=== PATIENT | female | born 1990 | race Caucasian/White ===

== ENCOUNTER → 2017-05-02 | Outpatient (CLI) | payer OTHER ==
[2017-05-02 10:52] LABS: HEMOGLOBIN 12.4 g/dL (12.2-16.2); LYMPH # 1.3 K/mm3 (0.7-4.5); LYMPH % 17.3 % (10-50.0)
[2017-05-02 14:00] LABS: ABO BLOOD TYPE A; RH BLOOD TYPE POSITIVE
[2017-05-03 08:53] LABS: HBsAg Screen Negative (Negative); HIV Screen 4th Generation wRfx Non Reactive (Non Reactive); Rapid Plasma Reagin, Quant Non Reactive (NonRea<1:1); Rubella Antibodies, IgG 4.99 index (Immune >0.99)
== END ==
LOC: LAB 10:22
PROVIDERS: Nurse Practitioner Obstetrics & Gynecology
DX: Z34.00 Encounter for supervision of normal first pregnancy, unspecified trimester (principal)
CPT/HCPCS: G0432

== ENCOUNTER → 2017-05-09 | Outpatient (CLI) | payer OTHER ==
--- NOTE | 2017-05-09 15:16 | RADIOLOGY REPORT PS360 ---
US TRANSVAGINAL PREG HISTORY: Check for gestational age, dates DATES ORDERING PHYSICIAN: Torsten Day MD PATIENT AGE: 26 years COMPARISON: None FINDINGS: An intrauterine gestational sac is present with a pole with a crown-rump length of 3.5 x 4cm correlating to gestational age of 10 weeks and 4 days. Estimated due date by ultrasound is 12/01/2017.. heart tones are present with an FHR of 139 bpm's. Yolk sac is noted. The amnion and chorion have not yet fused. Adnexa: The left ovary is 3.8 x 2 cm containing small follicles. The right ovary is 3.7 x 1.8 cm containing small follicles.. IMPRESSION: Live intrauterine gestation at 10 weeks 4 days with an estimated due date of 12/01/2017
== END ==
LOC: RAD 13:25
DX: O26.841 Uterine size-date discrepancy, first trimester (principal)